=== PATIENT | male | born 1985 | race Caucasian/White ===

== ENCOUNTER 2023-02-24 15:12 | Emergency (ER) | payer OTHER, SELFPAY ==
[2023-02-24 15:16] VITALS: BP 139/108; PULSE 72; RESP 16; TEMP 36.6; O2SAT 99
--- NOTE | 2023-02-24 15:41 | ED.C_ITS ---
HPI - Psych General: Chief Complaint: Psychiatric Symptoms Stated Complaint: psych eval Time Seen by Provider: 02/24/23 15:19 History of Present Illness: This 37-year-old male was brought in by law enforcement for mental health evaluation. He has been in residential for 6 days after he was arrested with firearms in his car. On questioning, patient noted that his ex- has his 2 kids and has refused him access to his kids since July 2022 (when she took them). The other day, she found where his kids are staying with his ex- and after multiple calls to the police department, he decided to go there himself. It appears that law enforcement was called out to the property and patient was arrested. At the time of his arrest, patient had all sorts of firearms in his car. Patient states that he typically carries the firearms with him. So, it was nothing out of the ordinary. He denies any intentions of hurting his or anyone else. He did admit to feeling suicidal on , when he was arrested and also states that he has had occasional thoughts of suicide over the last 7 months. He has never acted on it. He has no psychiatrist and takes no psychiatric medications. He has never attempted suicide and has never been admitted to any psychiatric facility. It appears that Dr. Gr is aware that patient is coming to the ER. Dr. Gr will see patient in the ER. Associated symptoms: Reports depression and suicidal ideation (Intermittent) Review of Systems Const: Denies: chills, body aches or change in appetite Eyes: Denies: change in vision or eye discharge ENMT: Denies: throat pain, dental pain or nasal discharge Card: Denies: chest pain or lightheadedness : Denies: dysuria Musc: Denies: neck pain or back pain Neuro: Denies: headache(s) or weakness in extremities Psych: Reports: depression and suicidal ideation (Intermittent) Ronnie/Lymph: Denies: easy bruising All/Imm: Denies: urticaria, tongue swelling or facial swelling Physical Exam Narrative: EXAM NARRATIVE: Patient is in cuffs. coughs. Const: COMMON NORMALS: no acute distress, patient oriented x3, no limitations and alert HENMT: COMMON NORMALS: normocephalic HEAD & SCALP: normocephalic Eye: COMMON NORMALS: EOMs intact bilaterally Neck/C-Spine: COMMON NORMALS: full ROM and supple Chest: COMMONS NORMALS: normal inspection of the chest Resp: COMMON NORMALS: normal respiratory effort, No retractions, No use of accessory muscles and clear to auscultation bilaterally AUSCULTATION: clear to auscultation bilaterally Cardio: COMMON NORMALS: regular rate, regular rhythm and No murmurs present (Cardio) RATE: regular rate RHYTHM: regular rhythm GI: COMMON NORMALS: Normal to inspection, nondistended, normoactive bowel sounds present and non-tender : COMMON NORMALS: Yes no CVA tenderness BLADDER/KIDNEY EXAM: Yes no CVA tenderness Back/Pelvis: COMMON NORMALS: no CVA tenderness and no thoracic nor lumbar tenderness Extremity: GENERAL: Yes normal exam except as noted Neuro: COMMON NORMALS: patient oriented x3 and no focal motor deficits SENSORIUM/ORIENTATION: Yes alert Psych: COMMON NORMALS: mental status grossly normal and cooperative Course Consultations: Consultation #1: Discussed with Dr. Gr who is coming to the ER to see patient. He recommends that blood tests be done to make sure patient is clinically stable. Time: 15:40 Vital Signs: Vital signs: Vital Signs Temperature 97.8 F 02/24/23 15:16 Pulse Rate 72 02/24/23 15:16 Respiratory Rate 16 02/24/23 15:16 Blood Pressure 139/108 02/24/23 15:16 Pulse Oximetry 99 02/24/23 15:16 Oxygen Delivery Me thod Room Air 02/24/23 15:16 MDM - Psych Medical Decision Making Medical decision making: History as above. Patient was evaluated in the ER by Dr. Gr who determined that there was no indication to admit him. He recommended that patient be discharged back to residential. No radiology studies performed this visit Discharge Plan Discharge Patient Disposition: Home Clinical Impression: Depression Condition: Stable Prescriptions: No Action Unable to Assess Discharge Orders: Discharge ED (Routine); Ordered 02/24/23 Ordered By: Inocencio Gastelum Discharge Diet: Usual diet Discharge Activity: Resume usual activity Patient Instructions: Opioid Safety, Pain Management Activity Restrictions/Additional Instructions: Follow-up with your primary care provider as needed. Return if you develop any new or concerning symptoms. Coding Level of Care Code ED G[employer] Manager for Dwight Roth
== END 2023-02-24 17:02 | disposition home or self-care (01) ==
PROVIDERS: Emergency Provider Family Medicine
DX: F32.A Depression, unspecified (principal)
CPT/HCPCS: 99283